=== PATIENT | male | born 1965 | race Caucasian/White ===

== ENCOUNTER 2019-03-05 10:11 | Emergency (ER) | payer OTHER ==
[~2019-03-05] VITALS: Ht 170.2 cm; Wt 71.6 kg
[2019-03-05 10:23] VITALS: Ht 170.2 cm; Wt 71.6 kg
[2019-03-05] MEDS ORDERED: SOD CHLORIDE 0.9% 1,000 ML IV STA (11:34)
[2019-03-05] MEDS ORDERED: AMOX1TAB10 PO (13:20)
--- NOTE | 2019-03-05 13:24 | ERD ---
ER Documentation Chief Complaint Chief Complaint RIGHT UQ ABD. PAIN WITH NAUSEA FOR 2 DAYS; ALSO C/O ST. HPI 53-year-old male no significant past medical history presents to the emergency room with approximately 1 to 2 weeks of right upper quadrant abdominal pain. He notes some scleral icterus, generalized malaise and weight loss. He denies any significant fevers or chills. No diarrheal illness. No exposure to hepatitis. Patient describes reflux symptoms including burning from his epigastrium that occurs at night. ROS All systems reviewed and are negative except as per history of present illness. Medications Home Meds Active Scripts Amoxicillin/Potassium Clav (Amox-Clav 875-125 mg Tablet) 875-125 mg Tab, 1 TAB PO BID for 7 Days, #14 TAB Prov:SELENE PAIGE MD 03/05/19 Allergies Allergies: Coded Allergies: No Known Allergy (Unverified , 03/05/19) FmHx Family History: No diabetes Physical Exam Vitals Vital Signs Date Temp Pulse Resp B/P (MAP) Pulse Ox O2 O2 Flow FiO2 Time Delivery Rate 03/05/19 97.8 57 18 126/77 98 10:23 (93) Physical Exam General: Well developed, well nourished, no acute distress Head: Normocephalic, atraumatic. Eyes: Pupils equally reactive, EOM intact, scant scleral icterus ENT: Moist mucous membranes Neck: Supple, no lymphadenopathy Respiratory: Lungs clear bilaterally, no distress Cardiovascular: RRR, no murmurs, rubs, or gallops Abdominal: Soft, mild epigastric abdominal tenderness with no true Tillman sign, no peritonitis : Deferred MSK: No edema, no unilateral swelling, 5/5 strength Neurologic: Alert and oriented, moving all extremities, normal speech, no focal weakness, no cerebellar signs Skin: No rash Psych: Normal mood Result Diagram: 03/05/19 1143 03/05/19 1143 Results 24 hrs Laboratory Tests Test 03/05/19 11:13 03/05/19 11:43 Urine Color ERIK Urine Clarity CLEAR Urine pH 5.0 Urine Specific [place] 1.017 Urine Ketones NEGATIVE mg/dL Urine Nitrite NEGATIVE mg/dL Urine Bilirubin 1+ mg/dL Urine Urobilinogen 1+ mg/dL Urine Leukocyte Esterase NEGATIVE Ariel/ul Urine Hemoglobin NEGATIVE mg/dL Urine Glucose NEGATIVE mg/dL Urine Total Protein NEGATIVE mg/dl White Blood Count 5.3 10^3/ul Red Blood Count 5.02 10^6/ul Hemoglobin 14.6 g/dl Hematocrit 44.3 % Mean Corpuscular Volume 88.2 fl Mean Corpuscular Hemoglobin 29.1 pg Mean Corpuscular Hemoglobin Concent 33.0 g/dl Red Cell Distribution Width 15.8 % Platelet Count 343 10^3/UL Mean Platelet Volume 11.1 fl Immature Granulocytes % 0.200 % Neutrophils % 49.3 % Lymphocytes % 34.8 % Monocytes % 13.8 % Eosinophils % 1.3 % Basophils % 0.6 % Nucleated Red Blood Cells % 0.0 /100WBC Immature Granulocytes # 0.010 10^3/ul Neutrophils # 2.6 10^3/ul Lymphocytes # 1.8 10^3/ul Monocytes # 0.7 10^3/ul Eosinophils # 0.1 10^3/ul Basophils # 0.0 10^3/ul Nucleated Red Blood Cells # 0.0 10^3/ul Prothrombin Time 13.0 Sec Prothrombin Time Ratio 1.0 INR International Normalized Ratio 0.97 Activated Partial Thromboplast Time 37.5 Sec Sodium Level 142 mmol/L Potassium Level 4.4 mmol/L Chloride Level 107 mmol/L Carbon Dioxide Level 27 mmol/L Anion Gap 8 Blood Urea Nitrogen 9 mg/dl Creatinine 0.91 mg/dl Est Glomerular Filtrat Rate mL/min > 60 mL/min Glucose Level 93 mg/dl Calcium Level 9.7 mg/dl Total Bilirubin 2.9 mg/dl Direct Bilirubin 1.70 mg/dl Indirect Bilirubin 1.2 mg/dl Aspartate Amino Transf (AST/SGOT) 1266 IU/L Alanine Aminotransferase (ALT/SGPT) 2765 IU/L Alkaline Phosphatase 183 IU/L Total Protein 7.6 g/dl Albumin 4.2 g/dl Globulin 3.40 g/dl Albumin/Globulin Ratio 1.23 Lipase 253 U/L Hepatitis B Surface Antigen Pending Hepatitis B Core Total Antibody Pending Hepatitis C Antibody Pending Current Medications Medications Dose Sig/Vic Start Time Status Last (Trade) Ordered Route PRN Stop Time Admin Dose Reason Admin Sodium 1,000 ml @ Q1H STAT 03/05/19 DC 03/05/19 Chloride 1,000 mls/hr IV 11:34 11:46 03/05/19 12:33 Ampicillin 100 ml @ ONCE ONCE 03/05/19 Sodium/ 100 mls/hr IVPB 13:30 Sulbactam 03/05/19 14:29 Sodium Procedures/MDM EKG, MONITORS, & DIAGNOSTIC IMAGING: Gallbladder ultrasound: IMPRESSION: 9 mm polyp versus adherent stone within the gallbladder. Associated gallbladder wall thickening and pericholecystic fluid may represent cholecystitis. This could be confirmed with a HIDA scan if clinically indicated.. LAB INTERPRETATION: I reviewed the laboratory testing and it shows hyperbilirubinemia with transaminitis MEDICAL DECISION MAKING: The patient presents with some mild abdominal discomfort to the right upper quadrant with associated jaundice. This raises the concern for possible acute cholecystitis, choledocholithiasis, hepatitis or mass. Patient warrants ultrasound imaging of the abdomen and gallbladder. Laboratory testing. No diarrheal illness or fever to suggest viral hepatitis. ER COURSE: * The patient's laboratory testing shows evidence of hyperbilirubinemia with transaminitis. Unclear etiology but with ultrasound finding concerning for possible gallbladder thickening this raises a concern for possible choledocholithiasis. Patient was written for Unasyn. * The patient was told of his results. He would like to go home. The patient was informed that he may have a blockage that could worsen and include acute pancreatitis and worsening symptoms including sepsis and possibly . Patient is convinced that he has had viral hepatitis. He was informed that there are many other alternatives. A viral hepatitis panel has been sent but will not result rapidly. * At this point the patient would like to be discharged. He would like to return tomorrow. He understands the risk benefits and alternatives. He has been given appropriate information and will be leaving AGAINST MEDICAL ADVICE. * The patient has decided to leave AGAINST MEDICAL ADVICE. A conversation was had discussing the risk benefits and alternatives including inpatient and outpatient management. The patient understands my recommendation for admission. The risks of leaving including significant morbidity and were discussed and understood. The patient has capacity. Document will be signed and placed in the chart Patient left AGAINST MEDICAL ADVICE CONSULTATION: [None] DISPOSITION PLAN: The patient is leaving AGAINST MEDICAL ADVICE. He will be started on Augmentin given concern for possible acute cholecystitis. It should be noted that the patient has had an indolent course therefore acute infectious cholecystitis secondary to bacteria seems less likely. Patient did not want to wait for her first dose of antibiotics in the emergency room setting. Departure Diagnosis: Primary Impression: Transaminitis Additional Impressions: Cholecystitis Hyperbilirubinemia Condition: Stable Patient Instructions: Cholecystitis, Confirmed Referrals: [facility] YOU HAVE RECEIVED A MEDICAL SCREENING EXAM AND THE RESULTS INDICATE THAT YOU DO NOT HAVE A CONDITION THAT REQUIRES URGENT TREATMENT IN THE EMERGENCY DEPARTMENT. FURTHER EVALUATION AND TREATMENT OF YOUR CONDITION CAN WAIT UNTIL YOU ARE SEEN IN YOUR DOCTORS OFFICE WITHIN THE NEXT 1-2 DAYS. IT IS YOUR RESPONSIBILITY TO MAKE AN APPOINTMENT FOR FOLOW-UP CARE. IF YOU HAVE A PRIMARY DOCTOR --you should call your primary doctor and schedule an appointment IF YOU DO NOT HAVE A PRIMARY DOCTOR YOU CAN CALL OUR PHYSICIAN REFERRAL HOTLINE AT IF YOU CAN NOT AFFORD TO SEE A PHYSICIAN YOU CAN CHOSE FROM THE FOLLOWING [facility] [address] [facility]. [facility] [address] [facility]. [facility] [address] [facility]. [facility] [address] [facility]. [facility] [address] [facility]. [facility] [address] [facility]. [facility] YOU HAVE RECEIVED A MEDICAL SCREENING EXAM AND THE RESULTS INDICATE THAT YOU DO NOT HAVE A CONDITION THAT REQUIRES URGENT TREATMENT IN THE EMERGENCY DEPARTMENT. FURTHER EVALUATION AND TREATMENT OF YOUR CONDITION CAN WAIT UNTIL YOU ARE SEEN IN YOUR DOCTORS OFFICE WITHIN THE NEXT 1-2 DAYS. IT IS YOUR RESPONSIBILITY TO MA KE AN APPOINTMENT FOR FOLOW-UP CARE. IF YOU HAVE A PRIMARY DOCTOR --you should call your primary doctor and schedule and appointment IF YOU DO NOT HAVE A PRIMARY DOCTOR YOU CAN CALL OUR PHYSICIAN REFERRAL HOTLINE AT . IF YOU CAN NOT AFFORD TO SEE A PHYSICIAN YOU CAN CHOSE FROM THE FOLLOWING [facility]: [facility] [address] [place] [address] [facility] [address] [place] [address] [facility] [address] [place] [address] [facility] () Usted se lerner hecho un examen mdico de control que le indica que no est en farshad condicin que requiera tratamiento urgente en el Departamento de Emergencia. Un estudio ms profundo y el tratamiento de mott condicin pueden esperar sin ningn riesgo hasta que usted sea atendida/o en el consultorio de mott mdico o farshad clnica. Es responsabilidad suya arreglar farshad josh para el seguimiento del willy. MANEJO DE CONDICIONES NO URGENTES EN EL FUTURO 1) Si usted tiene un mdico de atencin primaria: Usted debera llamar a mott mdico de atencin primaria antes de venir al departamento de emergencia. Despus de las horas de consultorio, mott doctor o mott asociado/a est disponible por telfono. El mdico o enfermero de cyndi en el servicio telefnico puede asesorarle por elizabeth medio para atender el problema, o willy contrario se puede programar farshad josh. 2) Si usted no tiene un mdico de atencin primaria: Llame al mdico o condado institucions de referencia que aparece abajo trista las horas de consultorio para hacer farshad josh para que le vean. SI USTED NO PUEDE PAGAR PARA ANA PAULA UN MEDICO puede ir a: [facility] [address] [place] [address] [facility] [address] [place] [address] [facility] [address] [place] [address] [facility] [address] [place] [address] [facility] Hours: Mon-Fri 9:00 AM - 5:00 PM Additional Instructions: You are leaving the hospital AGAINST MEDICAL ADVICE. You need to seek care for possible gallbladder infection, blockage. You would need to see a GI provider, general surgeon. Return for any fevers or chills. SELENE PAIGE MD Mar 05, 2019 13:24
[2019-03-05] MEDS ORDERED: AMPICILLIN/SULB 3 GM/NS (PMX) 100 ML IVPB ONE (13:30)
[2019-03-05 13:38] VITALS: BP 107/69; PULSE 81; RESP 20
== END 2019-03-05 13:50 | disposition left against medical advice (07) ==
LOC: E/R 10:11
DX: K81.9 Cholecystitis, unspecified (principal); R74.0 Nonspecific elevation of levels of transaminase and lactic acid dehydrogenase [LDH]; E80.6 Other disorders of bilirubin metabolism
CPT/HCPCS: 36415; 76705; 80053; 81003; 83690; 85025; 85610; 85730; 86704; 86709; 86803; 87340; J0295; J7030; Z7502